=== PATIENT | female | born 1955 | race Two or more races ===

== ENCOUNTER → 2020-07-09 | Outpatient (CLI) | payer BC | END | disposition home or self-care (01) | LOC: ECT 10:46 | DX: F33.2 Major depressive disorder, recurrent severe without psychotic features (principal); F32.9 Major depressive disorder, single episode, unspecified; Z88.8 Allergy status to other drugs, medicaments and biological substances; F19.90 Other psychoactive substance use, unspecified, uncomplicated; R45.851 Suicidal ideations ==